=== PATIENT | female | born 1985 | race Caucasian/White ===

== ENCOUNTER 2025-10-25 02:43 | Emergency (ER) | payer OTHER, MEDICAID ==
[2025-10-25 04:23] LABS: #Basophils 0.0 thou/uL (0.0-0.2); #Eosinophils 0.0 thou/uL (0.0-0.7); #Lymphocytes 1.1 thou/uL (1.20-3.40); #Monocytes 0.3 thou/uL (0.11-0.59); #Neutrophils 2.3 thou/uL (1.40-6.50); %Basophils 0.7 % (0.0-1.0); %Eosinophils 0.7 % (0.0-10.0); %Lymphocytes 29.6 % (21.0-51.0); %Monocytes 6.9 % (0.0-10.0); %Neutrophils 62.0 % (42.0-75.0); Hematocrit 39.3 % (36.0-47.0); Hemoglobin 12.8 g/dL (12.0-16.0); Mean Corpuscular Hemoglobin 29.8 pg (27.0-31.0); Mean Corpuscular Volume 91.7 fl (78.0-98.0); Platelet Count 73 10x3/uL (130-400); Red Blood Cell (RBC) Count 4.28 mill/uL (4.20-5.40); White Blood Cell (WBC) Count 3.7 10x3/uL (4.8-10.8)
[2025-10-25 04:24] LABS: BHCG - Serum Negative (NEGATIVE); Pregs Control Background? CLEAR/WHITE (CLR/WHITE); Pregs Control Bar Appear? YES (CONTROL BAR)
[2025-10-25 04:26] LABS: Platelet Adequacy Comment PLT clumps seen-ADEQ
[2025-10-25 04:29] LABS: ALT (SGPT) 13 U/L (Less than 34); AST (SGOT) 40 U/L (11-34); Albumin 3.2 g/dL (3.1-4.5); Alkaline Phosphatase 97 U/L (40-110); Anion Gap 17 mmol/L (10-20); BUN (Urea Nitrogen) 53 mg/dL (7.0-18.7); Bilirubin, Total 0.6 mg/dL (0.3-1.2); Calc. Creatinine Clearance 0 mL/min (70-130); Calcium 8.7 mg/dL (7.8-10.44); Carbon Dioxide 14 mmol/L (22-29); Chloride 107 mmol/L (98-107); Globulin 6.5 g/dL (2.4-3.5); Glucose 100 mg/dL (70-105); Potassium 4.2 mmol/L (3.5-5.1); Sodium 134 mmol/L (136-145)
[2025-10-25 04:35] LABS: Troponin I 0.087 ng/mL (< 0.028)
[2025-10-25] MEDS ORDERED: Cefepime 2 GM VIAL ONE (06:11)
[2025-10-25] MEDS ORDERED: Aspirin Chewable 81 MG TAB ONE (06:23)
[2025-10-25] MEDS ORDERED: Sulfameth/Trimethoprim DS 800-160mg TAB ONE (06:23)
[2025-10-25 09:55] LABS: Troponin I 0.076 ng/mL (< 0.028)
== END 2025-10-25 09:55 | disposition short-term general hospital (02) ==
LOC: BURERS 02:43
DX: J18.9 Pneumonia, unspecified organism (principal); B20 Human immunodeficiency virus [HIV] disease; I11.0 Hypertensive heart disease with heart failure; I50.9 Heart failure, unspecified; F17.290 Nicotine dependence, other tobacco product, uncomplicated; F17.210 Nicotine dependence, cigarettes, uncomplicated
CPT/HCPCS: 71250; 80053; 83880; 84484 ×2; 84703; 85025; 87040; 87428; 93005; J0692; J3373; 36415; 96365; 96367